=== PATIENT | female | born 2000 | race Caucasian/White ===

== ENCOUNTER 2022-06-29 10:54 | Emergency (ER) | payer OTHER ==
[~2022-06-29] VITALS: Ht 162.6 cm; Wt 56.7 kg
[2022-06-29] MEDS ORDERED: JOLESSA1 EACH PO (11:18)
[2022-06-29] MEDS ORDERED: CEPHALEXIN500 M1 PO (16:08)
--- NOTE | 2022-07-01 07:52 | EKG ---
[facility] [address] [facility] [address] [facility] [place] [address] Signed Sinus tachycardia Nonspecific T wave abnormality Abnormal ECG No previous ECGs available Confirmed by ERIKA YORK MD ([id number] on 07/01/2022 7:52:34 AM Electronically Signed By: ERIKA YORK MD 07/01/22 075 PATIENT NAME: MARIELENA PASTRANA LLOYD Electrocardiogram DATE OF : 01 PHYSICIAN: ERIKA YORK MD REPORT #: [id number] REPORT IS CONFIDENTIAL AND NOT TO BE RELEASED WITHOUT AUTHORIZATION
== END 2022-06-29 16:55 | disposition home or self-care (01) ==
LOC: ED 10:54 → EDBD 10:56 → ED 10:56
DX: N12 Tubulo-interstitial nephritis, not specified as acute or chronic (principal); Z20.822 Contact with and (suspected) exposure to COVID-19
CPT/HCPCS: 36415; 71045; 80048; 81001; 83605; 84703; 85025; 87088; 87186; 87502; 93005; 93010; 96365; 96375; 99284-25; A9270; C9803; J0696; J1885; J7030; U0003